=== PATIENT | female | born 1985 | race Caucasian/White ===

== ENCOUNTER 2022-08-07 09:53 | Outpatient (CLI) | payer BC, SELFPAY | END 2022-08-07 09:54 | disposition home or self-care (01) | PROVIDERS: PCP Family Medicine; Visit Provider Family Medicine | DX: Z01.419 Encounter for gynecological examination (general) (routine) without abnormal findings (principal); R53.83 Other fatigue; F41.9 Anxiety disorder, unspecified; Z13.6 Encounter for screening for cardiovascular disorders | CPT/HCPCS: 80053; 80061; 84443 ==

== ENCOUNTER 2022-11-07 10:39 | Outpatient (CLI) | payer BC, SELFPAY ==
--- NOTE | 2022-11-07 11:30 | CRLHL7_ITS ---
For Patients: As a result of the Century Cures Act, medical imaging exams and procedure reports are released immediately into your electronic medical record. You may view this report before your referring provider. If you have questions, please contact your health care provider. INDICATION: Hit in left anabaptism with baseball on 11/03/2022 TECHNIQUE: Noncontrast axial CT of the head. Coronal and sagittal reformats. Bone and soft tissue algorithms. COMPARISON: No relevant comparison studies available at this institution. FINDINGS: The ventricles and cortical sulci appear age-appropriate. No midline shift or mass effect. No acute intracranial hemorrhage or extra-axial fluid collection. Ruiz-white matter differentiation is grossly maintained. White matter attenuation is within normal limits. Intracranial vessels are unremarkable for technique. Midline structures are unremarkable. Bony calvarium appears grossly intact. Mild mucosal thickening along the left frontal recess and left sphenoid sinus, with bubbly secretions throughout the left sphenoid sinus. No mastoid effusion. Orbits are unremarkable. IMPRESSION: 1. No evidence of skull fracture or acute intracranial hemorrhage. 2. Mild mucosal thickening along the left frontal recess and left sphenoid sinus, with bubbly secretions throughout the left sphenoid sinus. Please note that all CT scans at this facility use dose modulation, iterative reconstruction, and/or weight-based dosing when appropriate to reduce radiation dose to as low as reasonably achievable. Dictated by Shannon Christine MD @ 11/07/2022 11:54:52 AM (Electronically Signed)
== END 2022-11-07 10:40 | disposition home or self-care (01) ==
PROVIDERS: PCP Family Medicine; Visit Provider Family Medicine
DX: S09.8XXA Other specified injuries of head, initial encounter (principal)
CPT/HCPCS: 70450

== ENCOUNTER 2023-08-12 06:29 | Outpatient (CLI) | payer BC, SELFPAY | END 2023-08-12 06:30 | disposition home or self-care (01) | LOC: NFLDREF 06:30 | PROVIDERS: PCP Family Medicine; Visit Provider Family Medicine | DX: R35.0 Frequency of micturition (principal) | CPT/HCPCS: 87086 ==

== ENCOUNTER 2023-12-25 13:15 | Outpatient (CLI) | payer BC, SELFPAY ==
--- OUTSIDE RECORDS SUMMARY | 2023-12-30 08:44 | XMS_ITS | Clinical Summary ---
Author Organization [facility] Address [place], [place] [address] Care Team Providers Care Pharmacology Professor Name Role Phone Clinic, No Pcp Or Primary Care Provider Unavaila ble Social History Tobacco Use Types Packs/Day Years Used Date Smoking Tobacco: Never Assessed Sex and Gender Information Value Date Recorded Sex Assigned at Not on file Gender Identity Not on file Sexual Orientation Not on file Plan of Treatment Health Maintenance Due Date Last Done Comments Tdap 1997 Depression screening for age 12+ 1998 HIV for age 15-65 2001 BMI (ht and wt on same day) for age 18+ 02/02/2004 Hepatitis C screening for age 18-79 02/02/2004 Tetanus booster 2006 COVID-19 vaccine series ( season) 2023 Influenza for age 9-49 12/21/2023 Pap test for age 21-65 11/01/2025 3, 11/01/2022, 01/22/2018, Additional history exists Pneumococcal series for age 6-64 Aged Out No longer eligible based on patient's age to complete this topic Procedures Procedure Name Priority Date/Time Associated Diagnosis Comments HPV THIN PREP Routine 11/01/2022 1:24 PM CDT from Last 3 Months or Most Recently Relevant to Health Maintenance Results * HPV HIGH RISK (11/01/2022 1:24 PM CDT) TYPE 16 Negative Negative 11/08/2022 3:19 PM CDT [facility] TYPE 18 Negative Negative 11/08/2022 3:19 PM CDT [facility] OTHER HIGH RISK TYPES Negative Negative 11/08/2022 3:19 PM CDT [facility] Other (Cervical/Vagina l) 11/01/2022 1:24 PM CDT 11/05/2022 2:04 PM CDT Narrative [facility] - 11/08/2022 3:19 PM CDT HPV types 16, 18, 31, 33, 35, 39, 45, 51, 52, 56, 58, 59, 66 and 68 DNA were undetectable or below the pre-set threshold. Methodology: [email or web address] Vanna 4800 HPV Test Shaila Cornejo MD MICROBIOLOGY [facility] [address] [employer] [place] [address], from Last 3 Months or Most Recently Relevant to Health Maintenance Care Teams Pharmacology Professor Relationship Specialty Start Date End Date Clinic, No Pcp Or . PCP - General 01/13/23
== END 2023-12-25 13:16 | disposition home or self-care (01) ==
LOC: NFLDREF 12-30 08:42
PROVIDERS: PCP Family Medicine; Referring Provider Family Medicine; Visit Provider Family Medicine
DX: Z91.09 Other allergy status, other than to drugs and biological substances (principal); Z13.228 Encounter for screening for other metabolic disorders; Z13.220 Encounter for screening for lipoid disorders
CPT/HCPCS: 80053; 80061

== ENCOUNTER 2024-02-17 10:27 | Outpatient (CLI) | payer BC, SELFPAY ==
--- OUTSIDE RECORDS SUMMARY | 2024-02-17 10:30 | XMS_ITS | Clinical Summary ---
Author Organization [facility] Address [place] [address] Care Team Providers Care Maintenance Shop Manager Name Role Phone Clinic, No Pcp Or [...] Name Priority Date/Time Associated Diagnosis Comments HPV HIGH RISK Routine 11/01/2022 1:24 PM CDT from Last 3 Months or Most Recently Relevant to Health Maintenance Results * HPV HIGH RISK (11/01/2022 1:24 PM CDT) TYPE 16 Negative Negative 11/08/2022 3:19 PM CDT [facility] TYPE 18 Negative Negative 11/08/2022 3:19 PM CDT [facility] OTHER HIGH RISK TYPES Negative Negative 11/08/2022 3:19 PM CDT [facility] Other (Cervical/Vagina l) 11/01/2022 1:24 PM CDT 11/05/2022 2:04 PM CDT Narrative [facility] - 11/08/2022 3:19 PM CDT HPV types 16, 18, 31, 33, 35, 39, 45, 51, 52, 56, 58, 59, 66 and 68 DNA were undetectable or below the pre-set threshold. Methodology: [email or web address] Vanna 4800 HPV Test Shaila Cornejo MD MICROBIOLOGY [facility] [address] [employer] [place] [address], from Last 3 Months or Most Recently Relevant to Health Maintenance Care Teams Maintenance Shop Manager Relationship Specialty Start Date End Date Clinic, No Pcp Or . PCP - General 01/13/23
--- NOTE | 2024-02-17 10:45 | CRLHL7_ITS ---
For Patients: As a result of the Cures Act, medical imaging exams and procedure reports are released immediately into your electronic medical record. You may view this report before your referring provider. If you have questions, please contact your health care provider. DIGITAL DIAGNOSTIC BILATERAL MAMMOGRAM USING TOMOSYNTHESIS AND COMPUTER-AIDED DETECTION CLINICAL HISTORY: LEFT breast pain. COMPARISON: None. TECHNIQUE: Digital BILATERAL mammogram in four projections with computer-aided detection. Tomosynthesis was used in this interpretation. BREAST COMPOSITION: The breasts are heterogeneously dense, which may obscure small masses. FINDINGS: 3D CC/MLO BILATERAL mammogram images submitted. No suspicious masses or architectural distortion. No suspicious calcifications or adenopathy. IMPRESSION: Normal BILATERAL mammograms. No suspicious findings. RECOMMENDATIONS: Age-appropriate screening mammography. Results and recommendations discussed with the patient. BI-RADS Category 2: Benign A lay language report of this examination will be provided to the patient. Dictated by Timur Willams MD @ 02/17/2024 12:19:51 PM jj/Dictated by: Timur Willams MD @ 02/17/2024 12:19:00 PM (Electronically Signed)
== END 2024-02-17 10:28 | disposition home or self-care (01) ==
LOC: MAMMO 10:28
PROVIDERS: PCP Family Medicine; Visit Provider Family Medicine
DX: N64.4 Mastodynia (principal)
CPT/HCPCS: 77066; G0279